=== PATIENT | male | born 1950 | race Two or more races ===

== ENCOUNTER → 2022-10-20 | Outpatient (CLI) | payer MEDICARE ==
--- NOTE | 2022-10-20 16:39 | US ---
EXAMINATION TYPE: US scrotum with doppler. Grayscale and color Doppler Duplex imaging performed of t he scrotum. 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 There is no evidence of testicular torsion. Presence of hydroceles: Bilateral hydroceles, larger on right side= 18.9 x 9.4 x 14.7 cm Presence of varicoceles: No Two cystic areas visualized within right testicle 1)= 1.0 x 1.0 x 1.0 cm/ 2)= 0.8 x 0.7 x 0.7 cm IMPRESSION: 1. Large right in moderate left hydrocele with floating debris. No evidence for testicular mass. 2. 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
== END | disposition home or self-care (01) ==
LOC: RADUSWWP 15:30
PROVIDERS: ATTEND Urology
DX: N44.2 Benign cyst of testis (principal); N43.3 Hydrocele, unspecified; N50.89 Other specified disorders of the male genital organs
CPT/HCPCS: 76870; 93975